=== PATIENT | female | born 1995 | race Caucasian/White ===

== ENCOUNTER 2017-09-16 14:07 | Emergency (ER) | payer BC ==
[2017-09-16 14:23] VITALS: BP 118/76
--- NOTE | 2017-09-16 15:27 | UC ---
UC Dental HPI - HPI Summary HPI Summary: THREE DAYS OF DENTAL SWELLING PAIN, NO FEVER. HAS WISDOM TEETH, SIMILAR CONCERN HAPPENED 6 MONTHS AGO. NO TONGUE SWELLING. NO SORE THROAT. NO EAR ACHE. - History of Current Complaint Chief Complaint: UCDentalProblem Stated Complaint: ORAL COMPLAINT Time Seen by Provider: 09/16/17 14:42 Hx Obtained From: Patient Hx Last Menstrual Period: 09/05/17 Onset/Duration: Gradual Onset Severity: Moderate Pain Intensity: 5 Pain Scale Used: 0-10 Numeric Related History: Previous Dental Care on Same Tooth, Swelling - Allergies/Home Medications Allergies/Adverse Reactions: Allergies Allergy/AdvReac Type Severity Reaction Status Date / Time No Known Allergies Allergy Verified 09/16/17 14:24 Home Medications: Home Medications Escitalopram Oxalate [Lexapro 10 mg] 15 mg PO DAILY 09/16/17 [History Confirmed 09/16/17] Norgestrel & Ethinyl Estradiol [Cryselle-28] 1 tab PO DAILY 09/16/17 [History Confirmed 09/16/17] PMH/Surg Hx/FS Hx/Imm Hx Previously Healthy: Yes - Surgical History Surgical History: None - Family History Known Family History: Negative: Respiratory Disease, Blood Disorder - Social History Occupation: Employed Full-time Lives: With Family Alcohol Use: Occasionally Substance Use Type: None Smoking Status (MU): Never Smoked Tobacco Review of Systems Constitutional: Negative Skin: Negative Eyes: Negative ENT: Dental Pain Respiratory: Negative Cardiovascular: Negative Gastrointestinal: Negative Genitourinary: Negative Motor: Negative Neurovascular: Negative Musculoskeletal: Negative Neurological: Negative Psychological: Negative Is Patient Immunocompromised?: No All Other Systems Reviewed And Are Negative: Yes Physical Exam Triage Information Reviewed: Yes Appearance: Well-Appearing, No Pain Distress, Well-Nourished Vital Signs: Initial Vital Signs Temp 97.9 F 09/16/17 14:19 Pulse 98 09/16/17 14:19 Resp 16 09/16/17 14:19 BP 118/76 09/16/17 14:19 Pulse Ox 99 09/16/17 14:19 Vital Signs Reviewed: Yes Eye Exam: Normal ENT Exam: Normal ENT: Positive: Normal ENT inspection, Hearing grossly normal, TMs normal Dental: Positive: Percussion Tenderness @ - 32 Neck exam: Normal Respiratory Exam: Normal Cardiovascular Exam: Normal Cardiovascular: Positive: RRR, No Murmur, Pulses Normal Abdominal Exam: Normal Musculoskeletal Exam: Normal Neurological Exam: Normal Psychological Exam: Normal Skin Exam: Normal Dental Complaint Course/Dx - Differential Dx/Diagnosis Differential Diagnosis/Dx: Odontogenic Pain, Post Extraction Pain, TMJ Syndrome Provider Diagnoses: DENTAL PAIN/ABSCESS #32 Discharge - Discharge Plan Condition: Stable Disposition: HOME Prescriptions: Amoxicillin/Clavulanate TAB* [Augmentin TAB 875*] 875 mg PO BID #20 tab Patient Education Materials: Dental Abscess (ED), Toothache (ED) Referrals: [facility] [place] [facility] REFERRAL [Outside] No Primary Care Phys,NOPCP [Primary Care Provider] - Images Dental: 1 - PAIN HERE
== END 2017-09-16 15:09 | disposition home or self-care (01) ==
LOC: UCCORT 14:07
DX: K04.7 Periapical abscess without sinus (principal); K08.89 Other specified disorders of teeth and supporting structures
CPT/HCPCS: 99212; G0463

== ENCOUNTER 2018-01-14 14:03 | Emergency (ER) | payer BC ==
[2018-01-14 16:24] VITALS: BP 130/79
--- NOTE | 2018-01-14 16:42 | UC ---
Complaint Female HPI - HPI Summary HPI Summary: 22 yo female with the onset of dysuria/urgency and frequency this AM no back pain no vag d/c or itch no n/v/d no/f/c - History Of Current Complaint Chief Complaint: UCGU Stated Complaint: URINARY COMPLAINT Time Seen by Provider: 01/14/18 16:41 Hx Obtained From: Patient Hx Last Menstrual Period: 1 week Onset/Duration: Gradual Onset, Lasting Hours Timing: Intermittent, Lasting Minutes Severity Initially: Mild Severity Currently: Mild Pain Intensity: 2 Pain Scale Used: 0-10 Numeric Character: Burning Aggravating Factor(s): Urination Associated Signs And Symptoms: Positive: Negative Related Hx: Similar Episode/Dx as: - UTI - Allergies/Home Medications Allergies/Adverse Reactions: Allergies Allergy/AdvReac Type Severity Reaction Status Date / Time No Known Allergies Allergy Verified 01/14/18 16:17 PMH/Surg Hx/FS Hx/Imm Hx Previously Healthy: Yes - Surgical History Surgical History: None - Family History Known Family History: Positive: Hypertension, Diabetes Negative: Respiratory Disease, Blood Disorder - Social History Alcohol Use: Occasionally Substance Use Type: None Smoking Status (MU): Never Smoked Tobacco Review of Systems Constitutional: Negative Skin: Negative Eyes: Negative ENT: Negative Respiratory: Negative Cardiovascular: Negative Gastrointestinal: Negative Genitourinary: Dysuria, Frequency, Urgency Motor: Negative Neurovascular: Negative Musculoskeletal: Negative Neurological: Negative Psychological: Negative Is Patient Immunocompromised?: No All Other Systems Reviewed And Are Negative: Yes Physical Exam Triage Information Reviewed: Yes Appearance: Well-Appearing, No Pain Distress, Well-Nourished Vital Signs: Initial Vital Signs Temp 98.7 F 01/14/18 16:19 Pulse 75 01/14/18 16:19 Resp 18 01/14/18 16:19 BP 130/79 01/14/18 16:19 Pulse Ox 100 01/14/18 16:19 Vital Signs Reviewed: Yes Eyes: Positive: Conjunctiva Clear ENT: Positive: Hearing grossly normal. Negative: Nasal congestion, Nasal drainage, Trismus, Muffled voice, Hoarse voice Neck: Positive: Supple Respiratory: Positive: Lungs clear, Normal breath sounds, No respiratory distress, No accessory muscle use Cardiovascular: Positive: RRR, No Murmur, Pulses Normal Abdomen Description: Positive: Nontender, No Organomegaly, Soft. Negative: CVA Tenderness (R), CVA Tenderness (L) Bowel Sounds: Positive: Present Musculoskeletal: Positive: ROM Intact, No Edema Neurological: Positive: Alert Psychological Exam: Normal Skin Exam: Normal Complaint Female Dx - Course Course Of Treatment: UA (++ Blood) (+) leuks - Differential Dx/Diagnosis Provider Diagnoses: dysuria. suspect UTI Discharge - Discharge Plan Condition: Stable Disposition: HOME Prescriptions: Cephalexin CAP* [Keflex CAP*] 500 mg PO BID #10 cap Phenazopyridine TAB* [Pyridium TAB*] 100 mg PO TID #6 tab Patient Education Materials: Dysuria (ED) Referrals: Radha Vigil PHARMACY SCHEDULER [Primary Care Provider] - Additional Instructions: I suspect a UTI recheck if not better in 48-72 hours
== END 2018-01-14 16:51 | disposition home or self-care (01) ==
LOC: UCCORT 14:03
DX: R30.0 Dysuria (principal)
CPT/HCPCS: 81003; 87086; 99212; G0463

== ENCOUNTER 2018-09-05 09:00 | Emergency (ER) | payer BC ==
[2018-09-05 09:35] VITALS: BP 120/76
--- NOTE | 2018-09-05 10:01 | ED ---
Neck Pain - HPI Summary HPI Summary: has had persistent pain in the left neck with pain on palpation and lumps noted in the left neck tender to the touch. noted cyst in the left earlobe tender to the touch. devies fever or chills - History of Current Complaint Chief Complaint: UCGeneralIllness Stated Complaint: LUMP LEFT SIDE JAW Time Seen by Provider: 09/05/18 09:50 Hx Obtained From: Patient Hx Last Menstrual Period: 08/18/18 Onset/Duration Of Injury/Symptoms: Days Mechanism Of Injury: No Known Trauma Timing: Constant Onset/Duration: Gradual Onset, Started hours ago Severity Initially: Moderate Severity Currently: Moderate Pain Intensity: 3 Character: Dull, Aching Aggravating Factors: Movement - Allergies/Home Medications Allergies/Adverse Reactions: Allergies Allergy/AdvReac Type Severity Reaction Status Date / Time bee venom protein (honey bee) Allergy Swelling Verified 09/05/18 09:31 PMH/Surg Hx/FS Hx/Imm Hx Previously Healthy: Yes Infectious Disease History: No Infectious Disease History: Denies: Traveled Outside the [place] in Last 30 Days - Family History Known Family History: Positive: Hypertension, Diabetes Negative: Respiratory Disease, Blood Disorder - Social History Alcohol Use: Occasionally Substance Use Type: Reports: None Smoking Status (MU): Never Smoked Tobacco Review of Systems Constitutional: Negative Eyes: Negative ENT: Negative Cardiovascular: Negative Respiratory: Negative Gastrointestinal: Negative Genitourinary: Negative Musculoskeletal: Negative Skin: Other - cyst left earlobe Neurological: Negative All Other Systems Reviewed And Are Negative: Yes Physical Exam Triage Information Reviewed: Yes Vital Signs On Initial Exam: Initial Vitals Temp Pulse Resp BP Pulse Ox 36.9 C 90 15 120/76 100 09/05/18 09:29 09/05/18 09:29 09/05/18 09:29 09/05/18 09:29 09/05/18 09:29 Vital Signs Reviewed: Yes Appearance: Positive: Well-Appearing Skin: Positive: Warm, Dry - acneiform rash Head/Face: Positive: Normal Head/Face Inspection Eyes: Positive: Normal Neck: Positive: Enlarged Nodes @ - left anterior cervical nodes proximal to the ear, no other adenopathy Respiratory/Lung Sounds: Positive: Clear to Auscultation Diagnostics - Vital Signs Vital Signs Temp Pulse Resp BP Pulse Ox 09/05/18 09:29 36.9 C 90 15 120/76 100 - Laboratory Result Diagrams: 09/05/18 10:24 Lab Statement: Any lab studies that have been ordered have been reviewed, and results considered in the medical decision making process. Neck Course/Dx - Diagnoses Differential Dx/HQI/PQRI: Positive: Adenitis - localized lymphadenitis Provider Diagnoses: Acute lymphadenitis of neck Discharge - Sign-Out/Discharge Documenting (check all that apply): Patient Departure All imaging exams completed and their final reports reviewed: Yes - Discharge Plan Condition: Good Disposition: HOME Prescriptions: DOXYcycline CAP(*) [DOXYcycline 100MG CAP(*)] 100 mg PO BID #20 cap Patient Education Materials: Adenitis (ED) Referrals: Radha Vigil MANAGER [facility] [employer] [Primary Care Provider] - Additional Instructions: follow up for persistent adenopathy, or change in adenopathy - Billing Disposition and Condition Condition: GOOD Disposition: Home
[2018-09-05 13:40] LABS: ABS Basophils 0 10^3/ul (0-0.2); ABS Eosinophils 0.2 10^3/ul (0-0.6); ABS Lymphocytes 2.4 10^3/ul (1.0-4.8); ABS Monocytes 0.7 10^3/ul (0-0.8); ABS Neutrophils 2.9 10^3/ul (1.5-7.7); ABS Nucleated RBC 0 10^3/ul; Eosinophil % 3.5 % (0-6); Hematocrit 43 % (35-47); Hemoglobin 14.1 g/dl (12.0-16.0); Lymphocyte % 38.1 % (25-47); Mean Corpuscular HGB Conc 33 g/dl (31-36); Mean Corpuscular Hemoglobin 27 pg (27-31); Mean Corpuscular Volume 80 fL (80-97); Mean Platelet Volume 7.9 um3 (7.4-10.4); Nucleated Red Blood Cells % 0.1; Platelet Count 249 10^3/ul (150-450); Red Blood Count 5.29 10^6/ul (4.00-5.40); Red Cell Distribution Width 14 % (10.5-15); White Blood Count 6.2 10^3/ul (3.5-10.8)
== END 2018-09-05 10:27 | disposition home or self-care (01) ==
LOC: UCCORT 09:00
DX: I88.9 Nonspecific lymphadenitis, unspecified (principal)
CPT/HCPCS: 36415; 85025; 85652; 99212; G0463

== ENCOUNTER 2018-11-26 07:27 | Emergency (ER) | payer BC ==
[2018-11-26 07:39] VITALS: BP 129/81
--- NOTE | 2018-11-26 08:00 | UC ---
Throat Pain/Nasal Vinny HPI - HPI Summary HPI Summary: Sore throat for 3 days. There is congestion as well. No aches or fever. - History of Current Complaint Chief Complaint: UCRespiratory Stated Complaint: SORE THROAT Time Seen by Provider: 11/26/18 07:49 Hx Obtained From: Patient Hx Last Menstrual Period: 2 WEEKS AGO Onset/Duration: Gradual Onset, Lasting Days Severity: Moderate Pain Intensity: 6 Cough: Nonproductive Associated Signs & Symptoms: Positive: Dysphagia. Negative: Fever, Vomiting, Rash - Allergies/Home Medications Allergies/Adverse Reactions: Allergies Allergy/AdvReac Type Severity Reaction Status Date / Time bee Allergy Swelling Uncoded 11/26/18 07:36 Home Medications: Home Medications Etonogest/Eth.estradiol (Nf) [Nuvaring Vaginal Ring] 1 ONCE 11/26/18 [History] PMH/Surg Hx/FS Hx/Imm Hx Previously Healthy: No - strep throat. - Surgical History Surgical History: None - Family History Known Family History: Positive: Hypertension, Diabetes Negative: Respiratory Disease, Blood Disorder - Social History Occupation: Employed Full-time Alcohol Use: Occasionally Substance Use Type: None Smoking Status (MU): Never Smoked Tobacco - Immunization History Most Recent Tetanus Shot: UTD Review of Systems All Other Systems Reviewed And Are Negative: Yes ENT: Positive: Sore Throat, Sinus Congestion Physical Exam Triage Information Reviewed: Yes Appearance: Well-Appearing, No Pain Distress, Well-Nourished Vital Signs: Initial Vital Signs Temp 98 F 11/26/18 07:37 Pulse 82 11/26/18 07:37 Resp 15 11/26/18 07:37 BP 129/81 11/26/18 07:37 Pulse Ox 100 11/26/18 07:37 Vital Signs Reviewed: Yes Eyes: Positive: Conjunctiva Clear, Conjunctiva Inflamed ENT: Positive: Pharyngeal erythema, Nasal congestion, TMs normal, Uvula midline. Negative: Nasal drainage, TM bulging, TM dull, TM red, Tonsillar swelling, Tonsillar exudate, Trismus, Muffled voice, Hoarse voice, Sinus tenderness Neck: Positive: Supple, Nontender, No Lymphadenopathy Respiratory: Positive: Chest non-tender, Lungs clear, Normal breath sounds, No respiratory distress. Negative: No accessory muscle use, Respiratory distress, Decreased breath sounds, Accessory muscle use, Crackles, Rhonchi, Stridor, Wheezing Cardiovascular: Positive: No Murmur, Pulses Normal, Brisk Capillary Refill Abdomen Description: Positive: Soft. Negative: Distended, Guarding Musculoskeletal: Positive: Strength Intact, ROM Intact, No Edema Neurological: Positive: Alert, Muscle Tone Normal. Negative: Fatigued Psychological: Positive: Age Appropriate Behavior Skin: Negative: Rashes Throat Pain/Nasal Course/Dx - Differential Dx/Diagnosis Provider Diagnosis: Pharyngitis Discharge - Sign-Out/Discharge Documenting (check all that apply): Patient Departure All imaging exams completed and their final reports reviewed: No Studies - Discharge Plan Condition: Good Disposition: HOME Patient Education Materials: Pharyngitis (ED) Forms: *Work Release Referrals: Radha Vigil NP [Primary Care Provider] - If Needed - Billing Disposition and Condition Condition: GOOD Disposition: Home
== END 2018-11-26 08:01 | disposition home or self-care (01) ==
LOC: UCCORT 07:27
DX: J02.9 Acute pharyngitis, unspecified (principal)
CPT/HCPCS: 87651; 99211; G0463

== ENCOUNTER 2019-03-09 11:13 | Emergency (ER) | payer BC ==
[2019-03-09 11:40] VITALS: BP 150/79
--- NOTE | 2019-03-09 11:46 | UC ---
Respiratory Complaint HPI - HPI Summary HPI Summary: 23-year-old female presents with complaints of persistent cough. States approximately 9 days ago she developed general malaise, fatigue, body aches, nasal congestion, sore throat, and a dry cough. States with the exception of the cough her symptoms improved after about 4-5 days however the last 6 days her cough has progressively become more harsh and she has developed some mild shortness of breath and occasional wheezing. Denies fever, chills, nasal congestion, ear pain, sore throat, chest pain, abdominal pain, nausea, vomiting , or diarrhea. - History of Current Complaint Chief Complaint: UCRespiratory Stated Complaint: COUGH,CONGESTION,BODY ACHES Time Seen by Provider: 03/09/19 11:37 Hx Obtained From: Patient Hx Last Menstrual Period: 2 WEEKS AGO Pain Intensity: 0 - Allergies/Home Medications Allergies/Adverse Reactions: Allergies Allergy/AdvReac Type Severity Reaction Status Date / Time bee venom protein (honey bee) Allergy Swelling Verified 03/09/19 11:36 Home Medications: Home Medications Dm/Acetaminophen/Doxylamine [Vicks Nyquil Cold & Flu N 15-6.25-325 mg] 2 cap PO Q6H PRN 03/09/19 [History Confirmed 03/09/19] PMH/Surg Hx/FS Hx/Imm Hx Previously Healthy: Yes - Denies significant PMH - Surgical History Surgical History: None - Family History Known Family History: Positive: Hypertension, Diabetes Negative: Respiratory Disease, Blood Disorder - Social History Occupation: Employed Full-time Lives: With Family Alcohol Use: Occasionally Substance Use Type: None Smoking Status (MU): Never Smoked Tobacco - Immunization History Most Recent Tetanus Shot: UTD Review of Systems All Other Systems Reviewed And Are Negative: Yes Constitutional: Negative: Fever, Chills Eyes: Negative: Drainage, Eye Redness ENT: Negative: Sore Throat, Ear Ache, Nasal Discharge, Sinus Congestion, Sinus Pain/Tenderness Respiratory: Positive: Shortness Of Breath, Cough, Other - Wheezing Cardiovascular: Negative: Palpitations, Chest Pain Gastrointestinal: Negative: Abdominal Pain, Vomiting, Diarrhea, Nausea Musculoskeletal: Positive: Negative Neurological: Positive: Negative Is Patient Immunocompromised?: No Physical Exam - Summary Physical Exam Summary: GENERAL APPEARANCE: Well developed, well nourished, alert and cooperative, and appears to be in no acute distress. EYES: Conjunctiva clear. No drainage. EARS: External auditory canals and tympanic membranes clear, hearing grossly intact. NOSE: No nasal discharge. THROAT: Pharynx normal No tonsilar inflammation, swelling, exudate, or lesions. Uvula midline. Oral cavity normal. Teeth and gingiva in good general condition. NECK: Neck supple, non-tender without lymphadenopathy. CARDIAC: Normal S1 and S2. No S3, S4 or murmurs. Rhythm is regular. There is no peripheral edema, cyanosis or pallor. Extremities are warm and well perfused. Capillary refill is less than 2 seconds. Peripheral pulses intact. LUNGS: Clear to auscultation without rales, rhonchi, wheezing or diminished breath sounds. Harsh, dry, non-productive cough. ABDOMEN: Positive bowel sounds. Soft, nondistended, nontender. No guarding or rebound. No masses or hepatosplenomegally. MUSKULOSKELETAL: ROM intact to all extremities. No joint erythema or tenderness. Normal muscular development. Normal gait. SKIN: Skin normal color, texture and turgor with no lesions or eruptions. Triage Information Reviewed: Yes Vital Signs: Initial Vital Signs Temp 97.9 F 03/09/19 11:32 Pulse 78 03/09/19 11:32 Resp 20 03/09/19 11:32 BP 150/79 03/09/19 11:32 Pulse Ox 100 03/09/19 11:32 Vital Signs Reviewed: Yes Respiratory Course/Dx - Course Course Of Treatment: 23-year-old female presents with complaints of persistent cough. States approximately 9 days ago she developed general malaise, fatigue, body aches, nasal congestion, sore throat, and a dry cough. States with the exception of the cough her symptoms improved after about 4-5 days however the last 6 days her cough has progressively become more harsh and she has developed some mild shortness of breath and occasional wheezing. Denies fever, chills, nasal congestion, ear pain, sore throat, chest pain, abdominal pain, nausea, vomiting , or diarrhea. Afebrile. Vital signs stable. Exam was remarkable for harsh, dry nonproductive cough with clear bilateral breath sounds. Considering the duration and worsening of her symptoms I will treat her for an acute bronchitis with a course of azithromycin and provided her with Tessalon Perles one capsule every 8 hours as needed for cough. Albuterol inhaler 2 puffs every 4-6 hours as needed for shortness of breath or wheezing. She is to follow-up with her primary care provider in 5 days if symptoms do not improve. Anticipatory guidance and warning symptoms were reviewed with the patient. Verbalized understanding and agrees with plan of care. - Differential Dx/Diagnosis Differential Diagnosis/HQI/PQRI: Bronchitis, Lower Resp Infection, Other - URI Provider Diagnosis: Acute bronchitis Discharge - Sign-Out/Discharge Documenting (check all that apply): Patient Departure All imaging exams completed and their final reports reviewed: No Studies - Discharge Plan Condition: Stable Disposition: HOME Prescriptions: Albuterol HFA INHALER* [Ventolin HFA Inhaler*] 2 puff INH Q4H PRN #1 mdi PRN Reason: Sob/Wheezing Azithromyxin GABRIELE (NF) [Z-Gabriele (Zithromax) 250 mg tabs #6] 2 tab PO .TODAY, THEN 1 DAILY #6 tab Benzonatate CAP* [Tessalon 100 MG CAP*] 100 mg PO TID PRN #30 cap PRN Reason: Cough Patient Education Materials: Acute Bronchitis (ED) Referrals: Radha Vigil NP [Primary Care Provider] - 5 Days Additional Instructions: Your history and exam are consistent with acute bronchitis. Considering the duration and worsening of your symptoms we will start you on an antibiotic. Start azithromycin 2 tabs today then 1 tab a day for the next 4 days. Use albuterol inhaler 2 puffs every 4-6 hours as needed for shortness of breath or wheezing. Be aware that the cough with bronchitis may persist for 2-3 weeks even if other symptoms have improved. Get plenty of rest. Drink plenty of fluids. Run a cool mist humidifer in your room at night. Take over the counter acetaminophen (Tylenol) or ibuprofen (Advil, Motrin) according to directions as needed for pain or fever. Take Tessalon Perles 1 cap every 8 hours as needed for cough. Follow up with your primary care provider in 5-7 days if symptoms do not improve. Seek immediate medical attention in the emergency room if you have fever greater than 100.5 F despite taking acetaminophen or ibuprofen, have chest pain , difficulty breathing, or have any worsening of symptoms. - Billing Disposition and Condition Condition: STABLE Disposition: Home - Attestation Statements Provider Attestation: I was available for consult. This patient was seen by the AHMET. The patient was not presented to, seen by, or examined by me. -[place]
== END 2019-03-09 12:09 | disposition home or self-care (01) ==
LOC: UCCORT 11:13
DX: J20.9 Acute bronchitis, unspecified (principal); Z91.030 Bee allergy status
CPT/HCPCS: 99212; G0463

== ENCOUNTER 2019-08-17 09:05 | Emergency (ER) | payer BC ==
[2019-08-17 09:21] VITALS: BP 121/85
--- NOTE | 2019-08-17 10:49 | UC ---
Dental HPI - HPI Summary HPI Summary: CHIEF COMPLAINT and HPI: This is a 24-year-old female with a complaint of pain over the right lower wisdom tooth. This condition began 2 days ago. Since then the pain has gotten worse. The pain is limited to the area of the right lower molar and the immediate cheek over it. There is mild cervical discomfort on that side. VITAL SIGNS & SaO2 REVIEWED. Within normal limits unless noted here. NURSES NOTE REVIEWED. "lower right wisdom tooth pain x 2 days" - History of Current Complaint Chief Complaint: UCDentalProblem Stated Complaint: TOOTH ACHE Time Seen by Provider: 08/17/19 10:37 Hx Last Menstrual Period: 07/29/19 Pain Intensity: 3 - Allergies/Home Medications Allergies/Adverse Reactions: Allergies Allergy/AdvReac Type Severity Reaction Status Date / Time bee venom protein (honey bee) Allergy Swelling Verified 08/17/19 09:22 Home Medications: Home Medications FLUoxetine* [Prozac*] 20 mg PO DAILY 08/17/19 [History Confirmed 08/17/19] PMH/Surg Hx/FS Hx/Imm Hx - Additional Past Medical History Additional PMH: PAST MEDICAL HISTORY- CHRONIC and RECURRENT HEALTH PROBLEM LIST REVIEWED. Information relevant to present complaint: VISIT HISTORY REVIEWED: previous history of right pericoronitis approximately one year ago MEDICATIONS & ALLERGIES REVIEWED. HYPERTENSION STATUS:. No antihypertensive medication FAMILY HISTORY: Positive for: cardiovascular disease, diabetes. Patient denies family history of: hypertension, cardiovascular disease, stroke, diabetes, cancer. SOCIAL HISTORY: lives with boyfriend and works as and ICU nurse at [employer]. Previously Healthy: Yes - Surgical History Surgical History: None - Family History Known Family History: Positive: Hypertension, Diabetes Negative: Respiratory Disease, Blood Disorder - Social History Alcohol Use: Occasionally Substance Use Type: None Smoking Status (MU): Never Smoked Tobacco - Immunization History Most Recent Tetanus Shot: UTD Review of Systems All Other Systems Reviewed And Are Negative: Yes Constitutional: Positive: Negative ENT: Positive: Dental Pain - # 32 Physical Exam - Summary Physical Exam Summary: Appearance: The patient is well-appearing, is in no pain or distress, and is well-nourished. Eyes: Conjunctiva are clear. Pupils are equal and reactive to light and accommodation. Extra ocular muscle movement is intact. ENT: The hearing is grossly normal, the pharynx is normal, and the TMs are normal. There is no muffled or hoarse voice. No stridor. . Right lower molar is half covered with soft tissue. The tissue does not look particularly inflamed. The area is, however, tender. There is no evidence of periapical abscess by palpation. The cheek is tender, but the neck does not appear to be infected. There is mild left anterior cervical adenopathy. Neck: The neck is supple and there is no lymphadenopathy. Respiratory: The chest is non-tender to palpation and without crepitus. The lungs are clear, there are normal breath sounds, and there is no respiratory distress. No wheezes, rales or rhonchi. Cardiovascular: Heart sounds reveal a regular rate and rhythm. There are no clicks, rubs or murmurs. There are no carotid bruits or thrills. Circulation is grossly intact. Abdomen: The abdomen is soft and nontender. There is no organomegaly. Bowel sounds are present and within normal limits. No point tenderness at McBurneys point. No CVA tenderness. Musculoskeletal: Strength is intact. The patient moves all extremities. Neurological: The patient is alert. Motor and sensory are examination grossly intact. Speech is normal. Psychological: The patient displays age appropriate behavior, and is conversant. GCS=15. Skin: Negative for rashes. Triage Information Reviewed: Yes Vital Signs: Initial Vital Signs Temp 98.7 F 08/17/19 09:19 Pulse 91 08/17/19 09:19 Resp 18 08/17/19 09:19 BP 121/85 08/17/19 09:19 Pulse Ox 100 08/17/19 09:19 Dental Complaint Course/Dx - Course Course Of Treatment: healthy 24-year-old with right lower wisdom tooth pain. She has a previous history of similar symptoms requiring antibiotic. Physical examination shows tissue covering the tooth #32. My diagnosis is right pericoronitis of tooth # 32. She will be started on penicillin, 500 mg, 4 times a day. She will continue this for 7 days. She will use Zofran and acetaminophen for pain. She knows to follow up if her condition worsens. - Differential Dx/Diagnosis Differential Diagnosis/Dx: Dental Abscess, Dental Caries, Odontogenic Pain Provider Diagnosis: Acute pericoronitis Discharge ED - Sign-Out/Discharge Documenting (check all that apply): Patient Departure All imaging exams completed and their final reports reviewed: No Studies - Discharge Plan Condition: Stable Disposition: HOME Patient Education Materials: Toothache (ED) Referrals: Radha Vigil NP [Primary Care Provider] - Additional Instructions: WE DISCUSSED: PLEASE SEEK CARE AT THE EMERGENCY DEPARTMENT IF SYMPTOMS WORSEN OR IF NEW SYMPTOMS DEVELOP. FOLLOW UP WITH YOUR PRIMARY CARE PHYSICIAN IF CONDITION CONTINUES BEYOND 3 DAYS WITHOUT IMPROVEMENT. YOUR DIAGNOSIS IS: pericoronitis of right lower wisdom tooth YOUR PRESCRIPTION RECOMMENDATION IS: PENECILLIN BY MOUTH, 500MG, FOUR TIMES A DAY. OTHER INSTRUCTIONS: WARM WATER GARGLES; DENTAL FOLLOW UP FOR REMOVAL OF WISDOM TEETH. For pain: Ibuprofen (Motrin and other brand names) 400-600mg PLUS acetaminophen (Tylenol and other brand names) 500mg - 1000mg every 8 hours. - Billing Disposition and Condition Condition: STABLE Disposition: Home
== END 2019-08-17 11:08 | disposition home or self-care (01) ==
LOC: UCEAST 09:05
DX: K05.20 Aggressive periodontitis, unspecified (principal)
CPT/HCPCS: 99212; G0463

== ENCOUNTER 2024-02-07 09:31 | Inpatient (IN) ==
[2024-02-07] MEDS ORDERED: Prochlorperazine 5 mg/ml 2 ml VIAL (10 mg) IV PRN (10:56)
[2024-02-07] MEDS ORDERED: Buffered Lidocaine 1% SYRIN 1 ml INTRADERM ONE (10:56)
[2024-02-07] MEDS ORDERED: Lidocaine 1% VIAL 10 MG/ML 30 ML VIAL INJ PRN (10:56)
[2024-02-07 12:54] LABS: ABS Lymphocytes 1.6 10^3/uL (1.0-4.8); ABS Monocytes 0.4 10^3/uL (0.0-0.9); ABS Neutrophils 7.9 10^3/uL (1.5-7.6); ABS Nucleated RBC 0.01 10^3/ul; Eosinophil % 0.1 %; Hematocrit 38.2 % (35-45); Hemoglobin 12.7 g/dL (11.5-14.3); Lymphocyte % 16.4 %; Mean Corpuscular Hemoglobin 27.8 pg (27-33); Mean Corpuscular Hgb Conc 33.2 g/dL (31-36); Mean Corpuscular Volume 83.7 fL (80-97); Mean Platelet Volume 10.2 fL (7.5-11.2); Nucleated Red Blood Cells % 0.1 %/100WBC (0.0-0.8); Platelet Count 154 10^3/uL (150-450); Red Blood Count 4.57 10^6/uL (3.63-4.92); Red Cell Distribution Width 14.1 % (12-17)
[2024-02-07 13:07] LABS: Urine Benzodiazepine Screen None Detected (None Detect); Urine Opiates Screen None Detected (None Detect)
[2024-02-07] MEDS: Ondansetron ODT 4 mg TAB 4 MG TAB PO PRN (16:42)
[2024-02-07] MEDS: Lidocaine 1.5% EPI 1:200,000 30 ML SDV ONE (19:17)
[2024-02-07] MEDS: OBEPIDURAL (200 ML) 200 ML EPIDURAL ONE (19:22)
[2024-02-07] MEDS: Lactated Ringers 1000 ml BAG 1,000 ML IV SCH (19:24)
[2024-02-07] MEDS ORDERED: Famotidine IV 10 MG/ML 2 ml VIAL (20 mg) IV PRN (19:33)
[2024-02-07] MEDS ORDERED: Lactated Ringers 1000 ml BAG 1,000 ML IV ONE (19:33)
[2024-02-07] MEDS ORDERED: Lactated Ringers 1000 ml BAG 500 ML IV PRN ×2 (19:33)
[2024-02-07] MEDS ORDERED: Sodium Citrate/Citric Acid LIQ 15 ML UDC PO PRN (19:33)
[2024-02-07] MEDS ORDERED: Phenylephrine 40 mcg/mL 10mL (400mcg) SYRINGE IV PUSH PRN ×2 (19:33)
[2024-02-07] MEDS ORDERED: Lactated Ringers 1000 ml BAG 1,000 ML IV SCH (20:00)
[2024-02-07 21:07] LABS: Urine Appearance Clear; Urine Bilirubin Negative (Negative); Urine Blood Negative (Negative); Urine Color Colorless; Urine Glucose Negative (Negative); Urine Ketones Negative (Negative); Urine Nitrite Negative (Negative); Urine Protein Negative (Negative); Urine Specific Gravity 1.005 (1.002-1.030); Urine Urobilinogen Negative (Negative); Urine pH 6.5 (5.0-8.0)
[2024-02-07] MEDS: Oxytocin in LR 20,000 MILLI.UNIT/1,000 ML BAG IV SCH (23:40)
[2024-02-08] MEDS: OBEPIDURAL (200 ML) 200 ML EPIDURAL SCH (02:37)
[2024-02-08] MEDS ORDERED: Glycerin ADULT 2.4 gm SUPP PR PRN (02:45)
[2024-02-08] MEDS ORDERED: Lactated Ringers 1000 ml BAG 1,000 ML IV SCH (03:00)
[2024-02-08] MEDS: Witch Hazel PAD JAR TOPICAL PRN (03:51)
[2024-02-08] MEDS: Dibucaine 1% OINT 28.35 GM TUBE PR PRN (03:51)
[2024-02-08 15:05] LABS: ABS Eosinophils 0.1 10^3/uL (0.0-0.5); ABS Lymphocytes 2.7 10^3/uL (1.0-4.8); ABS Monocytes 0.6 10^3/uL (0.0-0.9); ABS Neutrophils 6.2 10^3/uL (1.5-7.6); ABS Nucleated RBC 0.01 10^3/ul; Eosinophil % 0.8 %; Hematocrit 26.5 % (35-45); Lymphocyte % 28.2 %; Mean Corpuscular Hemoglobin 28.5 pg (27-33); Mean Corpuscular Hgb Conc 33.9 g/dL (31-36); Mean Corpuscular Volume 84.1 fL (80-97); Mean Platelet Volume 9.8 fL (7.5-11.2); Nucleated Red Blood Cells % 0.1 %/100WBC (0.0-0.8); Platelet Count 123 10^3/uL (150-450); Red Blood Count 3.15 10^6/uL (3.63-4.92); Red Cell Distribution Width 14.2 % (12-17); White Blood Count 9.7 10^3/uL (3.8-11.8)
[2024-02-08] MEDS: Lactated Ringers 1000 ml BAG 1,000 ML IV ONE (15:20)
[2024-02-09 00:31] VITALS: BP 123/70
[2024-02-09 10:02] LABS: ABS Eosinophils 0.1 10^3/uL (0.0-0.5); ABS Lymphocytes 2.3 10^3/uL (1.0-4.8); ABS Monocytes 0.4 10^3/uL (0.0-0.9); ABS Neutrophils 7.3 10^3/uL (1.5-7.6); ABS Nucleated RBC 0.01 10^3/ul; Hematocrit 29.5 % (35-45); Hemoglobin 9.9 g/dL (11.5-14.3); Lymphocyte % 22.4 %; Mean Corpuscular Hemoglobin 28.4 pg (27-33); Mean Corpuscular Hgb Conc 33.7 g/dL (31-36); Mean Corpuscular Volume 84.4 fL (80-97); Mean Platelet Volume 9.2 fL (7.5-11.2); Nucleated Red Blood Cells % 0.1 %/100WBC (0.0-0.8); Platelet Count 140 10^3/uL (150-450); Red Blood Count 3.49 10^6/uL (3.63-4.92); Red Cell Distribution Width 14.1 % (12-17); White Blood Count 10.1 10^3/uL (3.8-11.8)
== END 2024-02-09 17:18 | disposition home or self-care (01) | DRG 560 ==
LOC: MCHOBOUT 09:31 → MCHOB 10:28
PROVIDERS: ADMIT Registered Nurse; ATTEND Registered Nurse